=== PATIENT | male | born 1990 | race Caucasian/White ===

== ENCOUNTER → 2019-05-04 18:03 | Outpatient (CLI) | payer SELFPAY ==
--- NOTE | 2019-05-04 18:07 | DI.RAD.S_ITS ---
PROCEDURE: XR FINGER LT MIN 2V INDICATIONS: pain TECHNIQUE: AP hand, 2 views of the fourth finger(s) acquired. COMPARISON: None. FINDINGS: Bones: No dislocations. No suspicious bony lesions. There is a diagonal fracture through the midshaft of the fourth metacarpal bone. Soft tissues: No suspicious soft tissue calcifications. IMPRESSION: Fourth metacarpal bone fracture, minimally displaced. Dictated by: Chema Cooper M.D. on 05/04/2019 at 18:54 Approved by: Chema Cooper M.D. on 05/04/2019 at 18:55
== END ==
PROVIDERS: Visit Provider Physician Assistant
DX: M79.645 Pain in left finger(s) (principal); S62.325A Displaced fracture of shaft of fourth metacarpal bone, left hand, initial encounter for closed fracture
CPT/HCPCS: 73140

== ENCOUNTER 2019-05-11 11:52 | Day surgery (SDC) | payer BC, SELFPAY ==
[2019-05-10 11:27] VITALS: BMI 27.8
[2019-05-11 12:38] VITALS: BP 124/85; PULSE 73; RESP 16; TEMP 36.5; O2SAT 100; BMI 27.8
[2019-05-11] MEDS: LACTATED RINGERS 1,000 ML 42 ML IV ×2 (14:01→14:43)
--- NOTE | 2019-05-11 14:11 | PM.PREOP ---
Pre-operative Note Interval Note History & Physical reviewed/Exam performed by Physician: Yes Changes to H&P: No
[2019-05-11] MEDS: CEFAZOLIN 2 GM/100 ML FROZ.PIGGY IV (14:20)
[2019-05-11] MEDS: BUPIVACAINE 0.5% W/ EPI (PF) VIAL 30 ML INJ (14:43)
--- NOTE | 2019-05-11 14:48 | SUR.OPER ---
Supine on padded OR bed, head on pillow, arms secured on padded arm boards at <90 degrees abduction, legs uncrossed, safety belt at thigh, tape over blanket over lower legs.OPERATIVE ARM TO HAND TABLE
[2019-05-11 15:33] VITALS: BP 118/74; PULSE 75; RESP 12; TEMP 36.1; O2SAT 100
[2019-05-11 15:38] VITALS: BP 120/73; PULSE 77; RESP 19; O2SAT 100
[2019-05-11 15:41] VITALS: BP 130/86; PULSE 71; RESP 11; O2SAT 99
[2019-05-11 15:46] VITALS: BP 125/81; PULSE 68; RESP 15; O2SAT 100
--- NOTE | 2019-05-11 15:49 | P.OP_ITS ---
Operative Date/Time/Diagnoses Date of procedure: 05/11/19 Time of procedure: 14:30 Pre-op diagnosis: Left 4th metacarpal fracture Post-op diagnosis: same Procedure & Clinicians Procedure: Left 4th metacarpal fracture open reduction internal fixation Same procedure as scheduled: Yes Indications: Displaced 4th metacarpal fracture with rotational deformity Surgeon: Tera Adams Click Yes if Unassisted: Yes Anesthesia Type: General Operative Notes Findings: Spiral fracture involving the 4th metacarpal with rotational deformity Closure Type: primary Specimen(s): none sent Applied: implant(s) Estimated Blood Loss (mL): 0 Blood products transfused: none Tourniquet time (min): 40 Procedure in detail: Under service, patient was met in the holding area where his operative site was signed and witnessed by the OR staff. The surgeries once again discussed with the patient in remaining questions or concerns he had were answered fully. Patient was taken back to the operating theater placed on the operating table in a supine position. Great care was taken to ensure that all bony prominences were appropriately padded. Well-padded tourniquet was placed up along the upper extremity. Time-out was performed verifying patient's name, procedure, and operative site. The upper extremity was prepped and draped in the normal sterile fashion. Esmarch was used to exsanguinate the limb the tourniquet was turned up to 250 mm of mercury. Ten blade was used to incise through skin and fascial tissue centered over the 4th metacarpal. Deep knife was used to continue the sharp dissection until the metacarpal shaft was visualized. The extensor tendon was retracted off to the side and was not split. Once we had good visualization of the fracture, curette was used to debride out to the fracture site followed by irrigation. Two point reduction forceps were used to reduce the fracture. C- arm was brought in to verify reduction. Once we were satisfied with the reduction a plate was placed and then secured distally and proximally with fully threaded cortical screws. Six cortices on either side of the fracture. C-arm was brought in again to verify reduction as well as plate positioning and screw lengths. Final x-rays were obtained. Wound was copiously irrigated and then closed in layered fashion. The hand was then cleaned, dried, and dressed. Patient was placed into a splint and taken to the PACU in stable condition. Complications: none Condition: stable Disposition: PACU Plan for aftercare: Patient can be placed into a removable brace next week. No restrictions to range of motion. We will limit his lifting for 6 weeks.
[2019-05-11] MEDS: OXYCODONE/ACETAMINOPHEN 5/325 TABLET 1 TAB PO (16:10)
[2019-05-11 16:16] VITALS: BP 120/82; PULSE 60; RESP 16; TEMP 36.5; O2SAT 100
== END 2019-05-11 16:27 | disposition home or self-care (01) ==
PROVIDERS: Visit Provider Orthopaedic Surgery
PROC: (CPT 26615; principal; 2019-05-11 13:45)
DX: S62.325A Displaced fracture of shaft of fourth metacarpal bone, left hand, initial encounter for closed fracture (principal); W23.0XXA Caught, crushed, jammed, or pinched between moving objects, initial encounter
CPT/HCPCS: 26615; J0690; J1100; J2405; J2704; J3010

== ENCOUNTER → 2019-10-31 15:45 | Outpatient (CLI) | payer BC, SELFPAY ==
[2019-10-31 16:18] LABS: Add Manual Diff / Slide Review NO; Basophils Absolute Auto 100 /uL (0-100); Eosinophils Absolute Auto 200 /uL (0-450); Eosinophils Percent Auto 3.2 % (2-4); Hematocrit 46.7 % (41-53); Hemoglobin 16.5 g/dL (13.5-17.5); Lymphocytes Absolute Auto 1300 /uL (1100-4500); Lymphocytes Percent Auto 25.3 % (25-40); Mean Corpuscular HGB Conc 35.3 % (30-36); Mean Corpuscular Hemoglobin 31.7 PG (26-34); Mean Corpuscular Volume 89.8 fL (80-100); Monocytes Absolute Auto 600 /uL (0-900); Monocytes Percent Auto 12.2 % (3-14); Neutrophils Absolute Auto 3100 /uL (1500-7000); Neutrophils Percent Auto 58.3 % (50-75); Platelet Count 205 X10^3/uL (150-400); Red Cell Distribution Width 13.1 % (11.6-14.8); White Blood Cell Count 5.3 X10^3/uL (4.5-11.0)
[2019-10-31 16:28] LABS: Hemoglobin A1C% w Est Avg Glu 4.6 % (4.0-6.0)
[2019-10-31 16:48] LABS: Alanine Aminotransferase 46 IU/L (<50); Albumin 4.9 g/dL (3.5-5.0); Albumin Globulin Ratio 1.6 (1.0-2.8); Alkaline Phosphatase 60 U/L (38-126); Aspartate Aminotransferase 41 IU/L (17-59); BUN Creatinine Ratio 12.7 (6-22); Bilirubin Total 0.9 mg/dL (0.2-1.3); Blood Urea Nitrogen 14 mg/dL (9-20); Calcium 10.5 mg/dL (8.4-10.2); Carbon Dioxide 30 mmol/L (22-32); Chloride 99 mmol/L (98-107); Estimated Glomerular Filt Rate > 60.0 mL/min (>60); Globulin 3.1 g/dL (1.7-4.1); Glucose 91 mg/dL (70-100); HEMOLYSIS 23 (0-50); Potassium 4.7 mmol/L (3.4-5.1); Sodium 139 mmol/L (137-145)
[2019-10-31 17:18] LABS: TSH w/ Reflex to FT4 1.08 uIU/mL (0.47-4.68)
[2019-11-03 21:02] LABS: Testosterone Free 73.4 pg/mL (35.0-155.0); Testosterone Total 538 ng/dL (250-1100)
== END ==
PROVIDERS: Visit Provider Physician Assistant
DX: N52.9 Male erectile dysfunction, unspecified (principal)
CPT/HCPCS: 36415; 80053; 83036; 84402; 84403; 84443; 85025

== ENCOUNTER → 2020-02-14 10:18 | Outpatient (CLI) | payer BC, SELFPAY ==
[2020-02-14 23:05] LABS: COVID19 Sendout Not Detected (Not Detect)
== END ==
PROVIDERS: PCP Family Medicine; Visit Provider Physician Assistant
DX: Z11.59 Encounter for screening for other viral diseases (principal)
CPT/HCPCS: 87635

== ENCOUNTER → 2020-04-08 09:57 | Outpatient (CLI) | payer BC, SELFPAY ==
[2020-04-08 11:31] LABS: Add Manual Diff / Slide Review NO; Basophils Absolute Auto 100 /uL (0-100); Basophils Percent Auto 1.1 % (0-2); Eosinophils Absolute Auto 200 /uL (0-450); Eosinophils Percent Auto 4.3 % (2-4); Hematocrit 43.3 % (41-53); Hemoglobin 15.4 g/dL (13.5-17.5); Hemoglobin A1C% w Est Avg Glu 4.8 % (4.0-6.0); Lymphocytes Absolute Auto 1000 /uL (1100-4500); Lymphocytes Percent Auto 20.1 % (25-40); Mean Corpuscular HGB Conc 35.5 % (30-36); Mean Corpuscular Hemoglobin 31.3 PG (26-34); Mean Corpuscular Volume 88.1 fL (80-100); Monocytes Absolute Auto 700 /uL (0-900); Monocytes Percent Auto 13.4 % (3-14); Neutrophils Absolute Auto 3200 /uL (1500-7000); Neutrophils Percent Auto 61.1 % (50-75); Platelet Count 175 X10^3/uL (150-400); Red Blood Cell Count 4.91 X10^6/uL (4.5-5.9); Red Cell Distribution Width 13.7 % (11.6-14.8); White Blood Cell Count 5.2 X10^3/uL (4.5-11.0)
[2020-04-08 11:54] LABS: Alanine Aminotransferase 31 IU/L (<50); Albumin 4.5 g/dL (3.5-5.0); Albumin Globulin Ratio 1.7 (1.0-2.8); Alkaline Phosphatase 60 U/L (38-126); Aspartate Aminotransferase 32 IU/L (17-59); BUN Creatinine Ratio 17.2 (6-22); Bilirubin Total 0.6 mg/dL (0.2-1.3); Blood Urea Nitrogen 17 mg/dL (9-20); Calcium 9.9 mg/dL (8.4-10.2); Carbon Dioxide 26 mmol/L (22-32); Chloride 103 mmol/L (98-107); Cholesterol 182 mg/dL (140-199); Estimated Glomerular Filt Rate > 60.0 mL/min (>60); Globulin 2.7 g/dL (1.7-4.1); Glucose 88 mg/dL (70-100); HDL Cholesterol 33 mg/dL (40-60); HEMOLYSIS < 15 (0-50); LDL Cholesterol Calculated 104 mg/dL (<100); Potassium 4.1 mmol/L (3.4-5.1); Sodium 137 mmol/L (137-145); Total Protein 7.2 g/dL (6.3-8.2); Triglycerides 227 mg/dL (35-150)
[2020-04-08 12:57] LABS: Thyroid Stimulating Hormone 2.04 uIU/mL (0.47-4.68)
== END ==
PROVIDERS: PCP Family Medicine; Referring Provider Family Medicine; Visit Provider Family Medicine
DX: Z00.00 Encounter for general adult medical examination without abnormal findings (principal)
CPT/HCPCS: 36415; 80053; 80061; 83036; 84443; 85025